=== PATIENT | female | born 1990 ===

== ENCOUNTER 2021-07-26 07:40 | Emergency (ER) | payer SELFPAY ==
--- NOTE | 2021-07-26 07:51 | EDM.PDOC ---
ED HPI GENERAL MEDICAL PROBLEM - General Chief Complaint: ENT Problem Stated Complaint: [id number] SORE THROAT COUGH STUFFY NOSE Time Seen by Provider: 07/26/21 07:48 Source of Information: Reports: RN, RN Notes Reviewed History Limitations: Reports: No Limitations - History of Present Illness INITIAL COMMENTS - FREE TEXT/NARRATIVE: Left without being seen. Head Pain Score (Numeric/FACES): 5 - Related Data Allergies Allergy/AdvReac Type Severity Reaction Status Date / Time No Known Allergies Allergy Verified 07/26/21 08:08 Social & Family History - Family History Family Medical History: No Pertinent Family History - Living Situation & Occupation Living situation: Reports: with Family ED ROS ENT - Review of Systems Review Of Systems: Unable To Obtain Reason Not Obtained: Left without being seen. ED EXAM, ENT - Physical Exam Exam: Not Obtained Reason Not Obtained: Left without being seen. Course - Vital Signs Last Recorded V/S: Last Vital Signs Temp 98.1 F 07/26/21 08:04 Pulse 123 H 07/26/21 08:04 Resp 16 07/26/21 08:04 BP 128/77 07/26/21 08:04 Pulse Ox 100 07/26/21 08:04 - Orders/Labs/Meds Orders: Active Orders 24 hr Category Date Time Status CULTURE STREP A CONFIRMATION [RM] Stat Lab 07/26/21 07:50 Results STREP SCRN A RAPID W CULT CONF [RM] Stat Lab 07/26/21 07:50 Results Labs: Laboratory Tests 07/26/21 Range/Units 07:50 Influenza Type A RNA Negative (NEGATIVE) Influenza Type B RNA Negative (NEGATIVE) SARS-CoV-2 RNA (MARILYN) Negative (NEGATIVE) Departure - Departure Time of Disposition: 08:55 Disposition: Left Without Being Seen 07 Condition: Undetermined Clinical Impression: Patient left without being seen - Discharge Information *PRESCRIPTION DRUG MONITORING PROGRAM REVIEWED*: Not Applicable *COPY OF PRESCRIPTION DRUG MONITORING REPORT IN PATIENT MEGAN: Not Applicable Forms: ED Department Discharge, Refusal of Medical Screening Sepsis Event Note (ED) - Focused Exam Vital Signs: Vital Signs Temp Pulse Resp BP Pulse Ox 07/26/21 08:04 98.1 F 123 H 16 128/77 100 - My Orders Last 24 Hours: My Active Orders 07/26/21 07:50 CULTURE STREP A CONFIRMATION [RM] Stat STREP SCRN A RAPID W CULT CONF [RM] Stat - Assessment/Plan Last 24 Hours: My Active Orders 07/26/21 07:50 CULTURE STREP A CONFIRMATION [RM] Stat STREP SCRN A RAPID W CULT CONF [RM] Stat
[2021-07-26 08:41] LABS: CORONAVIRUS COVID-19 NAA NEGATIVE (NEGATIVE)
== END 2021-07-26 08:53 | disposition left against medical advice (07) ==
LOC: DL.ED 07:40
DX: Z53.21 Procedure and treatment not carried out due to patient leaving prior to being seen by health care provider (principal)
CPT/HCPCS: 0240U; 87081; 87430

== ENCOUNTER 2022-12-27 21:09 | Emergency (ER) | payer SELFPAY ==
[2022-12-27 21:55] LABS: AMPHETAMINES,URINE NEGATIVE (NEGATIVE); BARBITURATES,URINE NEGATIVE (NEGATIVE); BENZODIAZEPINE,URINE NEGATIVE (NEGATIVE); MDMA (ECSTASY), URINE NEGATIVE (NEGATIVE); METHADONE,URINE NEGATIVE (NEGATIVE); METHAMPHETAMINES,URINE NEGATIVE (NEGATIVE); OPIATES,URINE NEGATIVE (NEGATIVE); OXYCODONE,URINE NEGATIVE (NEGATIVE); PHENCYCLIDINE,URINE NEGATIVE (NEGATIVE); TCA,URINE NEGATIVE (NEGATIVE)
[2022-12-27 22:07] LABS: ANION GAP 11.8 mEq/L (7-13); CHLORIDE,CL 106 mmol/L (98-107); SODIUM,NA 144 mmol/L (136-145)
[2022-12-27 22:09] LABS: ESTIMATED GFR 93 mL/min (>=60)
[2022-12-27] MEDS ORDERED: Omeprazole 20 MG Cap.CR PO ONE (22:16)
[2022-12-27] MEDS ORDERED: Omeprazole 20 MG Cap.CR ONE (22:21)
== END 2022-12-27 22:24 | disposition home or self-care (01) ==
LOC: DL.ED 21:09
DX: R07.89 Other chest pain (principal)
CPT/HCPCS: 36415; 71045; 80053; 80305; 81001; 81025; 83605; 84484; 85025; 87086; 93005; 99285; A9270